=== PATIENT | male | born 1975 ===

== ENCOUNTER 2017-06-16 02:32 | Emergency (ER) | payer SELFPAY | END 2017-06-16 04:20 | disposition home or self-care (01) | LOC: D.ER 02:32 | DX: S01.112A Laceration without foreign body of left eyelid and periocular area, initial encounter (principal); W19.XXXA Unspecified fall, initial encounter; Y93.89 Activity, other specified; Y92.019 Unspecified place in single-family (private) house as the place of occurrence of the external cause; F17.200 Nicotine dependence, unspecified, uncomplicated ==